=== PATIENT | female | born 1980 | race American Indian/Alaskan Native ===

== ENCOUNTER 2021-09-09 15:23 | Emergency (ER) | payer OTHER ==
[2021-09-09 19:22] VITALS: BP 135/76
[2021-09-09 22:17] LABS: Basophils % (Auto) 0.3 % (0.0-1.8); Eosinophils % (Auto) 0.2 % (0.0-4.3); Hematocrit 30.9 % (30.3-42.9); Hemoglobin 9.7 gm/dl (10.1-14.3); Lymphocytes # (Auto) 2.2 K/mm3 (1.2-5.4); Lymphocytes % (Auto) 30.5 % (13.4-35.0); Mean Corpuscular HGB Conc 31 % (30-34); Mean Corpuscular Volume 82 fl (79-97); Monocytes # (Auto) 0.5 K/mm3 (0.0-0.8); Monocytes % (Auto) 7.2 % (0.0-7.3); Platelet Count 526 K/mm3 (140-440); Red Blood Count 3.75 M/mm3 (3.65-5.03)
--- NOTE | 2021-09-09 22:54 | Emergency Department Report ---
ED GI Bleed HPI - General Chief complaint: Rectal Pain Stated complaint: RECTAL BLEEDING W/PAIN Time Seen by Provider: 09/09/21 21:42 Source: patient Mode of arrival: Ambulatory Limitations: No Limitations - History of Present Illness Initial comments: Chief complaint: Rectal pain rectal bleeding HPI: This 41-year-old female history of endometriosis who presents with rectal bleeding rectal pain and constipation for the last month. She has had interm ittent bleeding. She has used suppositories and laxatives. Recently evaluated by urgent care center. She has a follow-up she has appointment with Dr. Miles first appointment September 25. She has abdominal bloating. Last bowel movement 2 weeks ago. She is tolerating food. She denies fever, vomiting. No trauma to the area. She is to her . No possibility of . She has us ed ibuprofen and aspirin for pain. Now she has spontaneous bleeding from her rectum with pad fill of blood. Patient recently diagnosed with COVID-19. First dose COVID-vaccine scheduled to be received tomorrow. She receives primary care through [facility]. Dejesus. complaint: other (Rectal bleeding, constipation and rectal pain) -: Gradual, month(s) (1 month ago) Radiation: none Severity scale (0 -10): 6 Quality: other (Lower abdominal discomfort rectal pain tenderness) Consistency: constant Worsens with: bowel movement Context: other (Recent evaluation for rectal bleeding urgent care center.) Associated Symptoms: other (Constipation abdominal bloating) - Related Data Allergies Allergy/AdvReac Type Severity Reaction Status Date / Time No Known Allergies Allergy Unverified 09/09/21 19:22 ED Review of Systems ROS: Stated complaint: RECTAL BLEEDING W/PAIN Other details as noted in HPI Comment: All other systems reviewed and negative Constitutional: denies: fever, malaise Respiratory: denies: cough, shortness of breath Gastrointestinal: abdominal pain, constipation, other (Rectal bleeding) ED Past Medical Hx - Past Medical History Previous Medical History?: Yes Additional medical history: Endometriosis - Surgical History Past Surgical History?: Yes Additional Surgical History: Endometrial ablation - Social History Smoking Status: Never Smoker Substance Use Type: None ED Physical Exam - General Limitations: No Limitations General appearance: alert, in no apparent distress - Head Head exam: Present: atraumatic, normocephalic - Eye Eye exam: Present: normal appearance - ENT ENT exam: Present: mucous membranes moist - Neck Neck exam: Present: normal inspection, full ROM - Respiratory Respiratory exam: Present: normal lung sounds bilaterally. Absent: respiratory distress, wheezes, rales, rhonchi - Cardiovascular Cardiovascular Exam: Present: regular rate, normal rhythm, normal heart sounds. Absent: systolic murmur, diastolic murmur, rubs, gallop - GI/Abdominal GI/Abdominal exam: Present: soft, normal bowel sounds. Absent: distended, tenderness, guarding, rebound - Rectal Rectal exam: Present: normal rectal tone, hemorrhoids (Hemorrhoid at 7:00 nonthrombosed gross blood) - Extremities Exam Extremities exam: Present: normal inspection - Neurological Exam Neurological exam: Present: alert, oriented X3 - Psychiatric Psychiatric exam: Present: normal affect, normal mood - Skin Skin exam: Present: warm, dry, intact, normal color. Absent: rash ED Course Vital Signs 09/09/21 19:19 Temperature 97.6 F Pulse Rate 121 H Respiratory 18 Rate Blood Pressure 135/76 O2 Sat by Pulse 100 Oximetry ED Medical Decision Making - Lab Data Result diagrams: 09/09/21 21:55 - Medical Decision Making Rectal bleeding due to hemorrhoid: Mild anemia hemoglobin 9.7. Recommended cessation of aspirin use. Recommended ibuprofen Tylenol for pain. Recommended gauze with direct pressure. Referred to general surgeon. Recommended clear liquid diet. Recommended scheduled laxative use. Also encouraged to call Dr. Miles's office for appointment at another location. Critical care attestation.: If time is entered above; I have spent that time in minutes in the direct care of this critically ill patient, excluding procedure time. ED Disposition Clinical Impression: Rectal bleeding, External hemorrhoid, bleeding Disposition: HOME / SELF CARE / HOMELESS Is pt being admited?: No Does the pt Need Aspirin: No Condition: Stable Instructions: Hemorrhoids, [id number], Rectal Bleeding, [id number] Referrals: IFEANYI MILES MD [Staff Physician] - BREANN CUEVAS DO [Staff Physician] - JAYNA
== END 2021-09-10 | disposition home or self-care (01) ==
LOC: ED 15:23
DX: K62.5 Hemorrhage of anus and rectum (principal); K64.4 Residual hemorrhoidal skin tags; N80.9 Endometriosis, unspecified; Z98.890 Other specified postprocedural states
CPT/HCPCS: 36415; 85025; 99283